=== PATIENT | female | born 1975 | race Caucasian/White ===

== ENCOUNTER 2017-02-17 09:19 | Emergency (ER) | payer BC ==
[~2017-02-17] VITALS: Ht 162.6 cm; Wt 66.7 kg
[2017-02-17 09:20] VITALS: BP_SYST 98
--- NOTE | 2017-02-17 09:20 | NUR ---
BROUGHT BACK TO BED #7 AND TRIAGED, REPORT GIVEN TO TARYN
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
--- NOTE | 2017-02-17 10:30 | NUR ---
DR VÁSQUEZ AT BEDSIDE FOR EVALUATION
[2017-02-17 10:50] LABS: BILIRUBIN,URINE NEGATIVE (NEGATIVE); BLOOD, URINE NEGATIVE (NEGATIVE); CLARITY/URINE HAZY (CLEAR); COLOR,URINE YELLOW (YELLOW); GLUCOSE,URINE NEGATIVE (NEGATIVE); KETONES,URINE NEGATIVE (NEGATIVE); LEUKOCYTE ESTERASE ,URINE NEGATIVE (NEGATIVE); NITRITE, URINE POSITIVE (NEGATIVE); PROTEIN URINE NEGATIVE (NEGATIVE); UROBILINOGEN,URINE 0.2 (0.2-1.0)
--- NOTE | 2017-02-17 11:12 | NUR ---
Patient given written and verbal discharge instructions and verbalizes understanding. ER MD discussed with patient the results and treatment provided. Given copies of tests performed in ER. Patient in stable condition. ID arm band removed. Rx of Macrobid given. Patient educated on pain management and to follow up with PMD. Pain Scale . Opportunity for questions provided and answered.
[2017-02-17 11:25] LABS: BACTERIA,URINE MODERATE /HPF (None Seen); RBC,URINE 0-3 /HPF (0-3); WBC,URINE 0-3 /HPF (0-3)
== END 2017-02-17 11:12 | disposition home or self-care (01) ==
LOC: SED 09:19
DX: O09.812 Supervision of pregnancy resulting from assisted reproductive technology, second trimester (principal); Z3A.17 17 weeks gestation of pregnancy; V49.9XXA Car occupant (driver) (passenger) injured in unspecified traffic accident, initial encounter; Y93.89 Activity, other specified; Y99.8 Other external cause status; Y92.89 Other specified places as the place of occurrence of the external cause
CPT/HCPCS: 81000-TC; 99283

== ENCOUNTER 2017-06-22 14:40 | Observation (INO) | payer BC ==
[2017-06-22] MEDS ORDERED: D5/0.45 NS 1,000 ML IV ONE (15:15)
[2017-06-22 15:42] LABS: BASOPHILS % (AUTO) 0.3 % (0.0-2.0); EOSINOPHILS # (AUTO) 0.2 K/uL (0.0-0.4); HEMATOCRIT 31.9 % (36-48); HEMOGLOBIN 10.7 g/dL (12.0-16.0); LYMPHOCYTES # (AUTO) 1.2 K/uL (1.0-5.5); LYMPHOCYTES % (AUTO) 14.1 % (20.5-51.5); MEAN CORPUSCULAR HEMOGLOBIN 30 pg (27-31); MEAN CORPUSCULAR HGB CONC 33 % (32-36); MEAN CORPUSCULAR VOLUME 90 fL (79.0-98.0); MONOCYTES # (AUTO) 0.3 K/uL (0.0-1.0); MONOCYTES % (AUTO) 3.6 % (1.7-9.3); NEUTROPHILS # (AUTO) 6.6 K/uL (1.8-7.7); PLATELET COUNT (AUTO) 350 K/uL (130-430); RED BLOOD CELL COUNT(AUTO) 3.56 MIL/uL (4.2-6.2); RED CELL DISTRIBUTION WIDTH 13.8 % (9.0-15.0); WHITE BLOOD COUNT (AUTO) 8.3 K/uL (4.8-10.8)
[2017-06-22 15:43] LABS: ALBUMIN 2.3 g/dL (3.4-4.8); CALCIUM 8.8 mg/dL (8.4-11.0); CREATININE 0.61 mg/dL (0.55-1.30); POTASSIUM 3.7 mmol/L (3.5-5.1); TOTAL BILIRUBIN 0.2 mg/dL (0.0-1.0); TOTAL PROTEIN, SERUM 6.6 g/dL (6.4-8.3)
[2017-06-22] MEDS ORDERED: ONDANSETRON HCL 4 MG/2 ML VIAL IVP PRN (16:40)
[2017-06-22 18:37] VITALS: BP_SYST 105
== END 2017-06-22 18:28 | disposition home or self-care (01) ==
LOC: SPU 14:40
PROVIDERS: ADMIT Specialist; ATTEND Specialist
DX: O36.8130 Decreased fetal movements, third trimester, not applicable or unspecified (principal); Z3A.35 35 weeks gestation of pregnancy
CPT/HCPCS: 36415; 80053; 85025; G0378

== ENCOUNTER 2017-06-25 15:35 | Observation (INO) | payer BC ==
[~2017-06-25] VITALS: Ht 160 cm; Wt 77.6 kg
[2017-06-25 18:02] VITALS: BP_SYST 112
== END 2017-06-25 18:35 | disposition home or self-care (01) ==
LOC: SPU 15:35
PROVIDERS: ADMIT Specialist; ATTEND Specialist
DX: O99.613 Diseases of the digestive system complicating pregnancy, third trimester (principal); K51.90 Ulcerative colitis, unspecified, without complications; Z3A.35 35 weeks gestation of pregnancy
CPT/HCPCS: G0378

== ENCOUNTER 2017-06-29 01:13 | Inpatient (IN) | payer BC ==
[~2017-06-29] VITALS: Ht 160 cm; Wt 78.0 kg
[2017-06-29 02:19] LABS: BILIRUBIN,URINE NEGATIVE (NEGATIVE); BLOOD, URINE NEGATIVE (NEGATIVE); CLARITY/URINE SL CLOUDY (CLEAR); COLOR,URINE YELLOW (YELLOW); GLUCOSE,URINE NEGATIVE (NEGATIVE); KETONES,URINE NEGATIVE (NEGATIVE); LEUKOCYTE ESTERASE ,URINE NEGATIVE (NEGATIVE); NITRITE, URINE NEGATIVE (NEGATIVE); PROTEIN URINE NEGATIVE (NEGATIVE); UROBILINOGEN,URINE 0.2 (0.2-1.0)
[2017-06-29 02:24] LABS: BASOPHILS % (AUTO) 0.3 % (0.0-2.0); EOSINOPHILS # (AUTO) 0.1 K/uL (0.0-0.4); EOSINOPHILS % (AUTO) 2.2 % (0.0-4.0); HEMATOCRIT 31.1 % (36-48); HEMOGLOBIN 10.3 g/dL (12.0-16.0); LYMPHOCYTES # (AUTO) 1.3 K/uL (1.0-5.5); LYMPHOCYTES % (AUTO) 20.4 % (20.5-51.5); MEAN CORPUSCULAR HEMOGLOBIN 29 pg (27-31); MEAN CORPUSCULAR HGB CONC 33 % (32-36); MEAN CORPUSCULAR VOLUME 89 fL (79.0-98.0); MONOCYTES # (AUTO) 0.3 K/uL (0.0-1.0); NEUTROPHILS # (AUTO) 4.8 K/uL (1.8-7.7); NEUTROPHILS % (AUTO) 72.1 % (40.0-70.0); PLATELET COUNT (AUTO) 299 K/uL (130-430); RED BLOOD CELL COUNT(AUTO) 3.49 MIL/uL (4.2-6.2); RED CELL DISTRIBUTION WIDTH 13.9 % (9.0-15.0); WHITE BLOOD COUNT (AUTO) 6.5 K/uL (4.8-10.8)
[2017-06-29 02:27] LABS: CALCIUM 8.1 mg/dL (8.4-11.0); CREATININE 0.64 mg/dL (0.55-1.30); POTASSIUM 3.5 mmol/L (3.5-5.1)
[2017-06-29 02:32] LABS: TOTAL BILIRUBIN 0.2 mg/dL (0.0-1.0); TOTAL PROTEIN, SERUM 6.2 g/dL (6.4-8.3)
[2017-06-29 02:35] LABS: BARBITURATE, URINE NEGATIVE (NEG <=200); BENZODIAZEPINE, URINE NEGATIVE (NEG <=150); CANNABINOID, URINE NEGATIVE (NEG <=50); COCAINE, URINE NEGATIVE (NEG <=150); METHAMPHETAMINES SCREEN,URINE POSITIVE (NEG <=500); OPIATE, URINE NEGATIVE (NEG <=100); PHENCYCLIDINE SCREEN,URINE NEGATIVE (NEG <=25); UR TRICYCLIC ANTIDEPRESSANTS NEGATIVE (NEG <=300); URINE AMPHETAMINE NEGATIVE (NEG <=500); URINE METHADONE NEGATIVE (NEG <=200); URINE OXYCODONE SCREEN NEGATIVE (NEG <=100); URINE PROPOXYPHENE SCREEN NEGATIVE (NEG <=300)
[2017-06-29] MEDS ORDERED: CITRIC ACID/SODIUM CITRATE 30 ML UDC PO ONE (14:15)
[2017-06-29 15:01] LABS: BILIRUBIN,URINE NEGATIVE (NEGATIVE); BLOOD, URINE NEGATIVE (NEGATIVE); CLARITY/URINE SL HAZY (CLEAR); COLOR,URINE YELLOW (YELLOW); GLUCOSE,URINE NEGATIVE (NEGATIVE); KETONES,URINE NEGATIVE (NEGATIVE); LEUKOCYTE ESTERASE ,URINE NEGATIVE (NEGATIVE); NITRITE, URINE NEGATIVE (NEGATIVE); PROTEIN URINE NEGATIVE (NEGATIVE); UROBILINOGEN,URINE 0.2 (0.2-1.0)
[2017-06-29 15:53] LABS: BARBITURATE, URINE NEGATIVE (NEG <=200); BENZODIAZEPINE, URINE NEGATIVE (NEG <=150); CANNABINOID, URINE NEGATIVE (NEG <=50); COCAINE, URINE NEGATIVE (NEG <=150); METHAMPHETAMINES SCREEN,URINE NEGATIVE (NEG <=500); OPIATE, URINE NEGATIVE (NEG <=100); PHENCYCLIDINE SCREEN,URINE NEGATIVE (NEG <=25); UR TRICYCLIC ANTIDEPRESSANTS NEGATIVE (NEG <=300); URINE AMPHETAMINE NEGATIVE (NEG <=500); URINE METHADONE NEGATIVE (NEG <=200); URINE OXYCODONE SCREEN NEGATIVE (NEG <=100); URINE PROPOXYPHENE SCREEN NEGATIVE (NEG <=300)
[2017-06-29 16:06] LABS: BACTERIA,URINE FEW /HPF (None Seen); RBC,URINE 0-3 /HPF (0-3); WBC,URINE 0-3 /HPF (0-3)
[2017-06-29] MEDS ORDERED: DIPH-TET-PERTUS Vaccine 0.5 ML VIAL (ADACEL) I.M. ONE (17:30)
[2017-06-30] MEDS ORDERED: CEFAZOLIN 2 GM IVPB PREMIX 50 ML IV ONE (08:15)
[2017-06-30] MEDS ORDERED: CEFAZOLIN 1 GM IVPB PREMIX 50 ML IV ONE (09:00)
[2017-06-30] MEDS ORDERED: ONDANSETRON HCL 4 MG/2 ML VIAL IVP PRN ×2 (09:15→10:45)
[2017-06-30] MEDS ORDERED: OXYCODONE/ACETAMINOPHEN 5-325 TABLET PO PRN ×4 (09:15→10:45)
[2017-06-30] MEDS ORDERED: HYDROcodone/ACETAMIN 5-325 MG TAB (NORCO/ VICODIN) PO PRN ×2 (09:15→10:45)
[2017-06-30] MEDS ORDERED: LR 1,000 ML IV SCH ×2 (10:36→10:43)
[2017-06-30] MEDS ORDERED: OXYTOCIN/NORMAL SALINE 1,000 ML IV ONE (10:36)
[2017-06-30] MEDS ORDERED: NALOXONE HCL 1 MG in NACL 0.9% 1,000 ML IV PRN ×4 (10:43)
[2017-06-30] MEDS ORDERED: HYDROmorphone 2 MG/ML VIAL IVP PRN ×2 (10:45)
[2017-06-30] MEDS ORDERED: HYDROmorphone 1 MG INJ. 1 MG/ML AMPUL IVP PRN (10:45)
[2017-06-30] MEDS ORDERED: DIPHENHYDRAMINE HCL 50 MG CAPSULE PO PRN (10:45)
[2017-06-30] MEDS ORDERED: LANOLIN 7 GM OINT. TP PRN (10:45)
[2017-06-30] MEDS ORDERED: ANUSOL 1 EA SUPP.RECT (PREPARATION H) RC PRN (10:45)
[2017-06-30] MEDS ORDERED: DOCUSATE SODIUM 100 MG CAPSULE PO PRN (10:45)
[2017-06-30] MEDS ORDERED: NALOXONE HCL 0.4 MG/ML AMP (NARCAN) IVP PRN ×3 (10:45)
[2017-06-30] MEDS ORDERED: KETOROLAC TROMETHAMINE 60 MG/2 ML VIAL IM PRN (10:45)
[2017-06-30] MEDS ORDERED: MEASLES,MUMPS&RUBELLA VACC/PF 12500 UNIT/0.5 ML VIAL SUBQ PRN (10:45)
[2017-06-30] MEDS ORDERED: SENNOSIDES/DOCUSATE SODIUM 1 TAB TABLET(SENOKOT-S) PO PRN (10:45)
[2017-06-30] MEDS ORDERED: RHO(D) IMMUNE GLOBULIN/MALTOSE 1500 UNITS/1.3 ML (WINHRO) IM PRN (10:45)
[2017-06-30] MEDS ORDERED: BISACODYL 10 MG/SUPPOSITORY RC PRN (10:45)
[2017-06-30] MEDS ORDERED: MEPERIDINE HCL/PF 25 MG/ML DISP.SYRIN IVP PRN ×2 (10:45)
[2017-06-30] MEDS ORDERED: SIMETHICONE 80 MG TAB.CHEW PO PRN (10:45)
[2017-06-30 11:06] VITALS: BP_SYST 96
[2017-06-30] MEDS: DIPHENHYDRAMINE INJ 50 MG/ML VIAL IVP PRN (11:15)
[2017-06-30] MEDS ORDERED: DIPHENHYDRAMINE INJ 50 MG/ML VIAL ONE ×2 (11:19→12:42)
[2017-06-30] MEDS: CEFAZOLIN 1 GM IVPB PREMIX 50 ML IV SCH (18:12)
[2017-06-30] MEDS: KETOROLAC TROMETHAMINE 30 MG VIAL IVP SCH (18:13)
[2017-06-30] MEDS ORDERED: TEMAZEPAM 15 MG CAPSULE PO PRN (21:00)
[2017-07-01] MEDS: CEFAZOLIN 1 GM IVPB PREMIX 50 ML IV SCH ×2 (00:21→05:57)
[2017-07-01] MEDS: KETOROLAC TROMETHAMINE 30 MG VIAL IVP SCH ×3 (00:21→12:00)
[2017-07-01] MEDS: DIPHENHYDRAMINE INJ 50 MG/ML VIAL IVP PRN (00:43)
[2017-07-01 07:33] LABS: BASOPHILS % (AUTO) 0.2 % (0.0-2.0); EOSINOPHILS # (AUTO) 0.1 K/uL (0.0-0.4); EOSINOPHILS % (AUTO) 1.1 % (0.0-4.0); HEMATOCRIT 27.3 % (36-48); LYMPHOCYTES % (AUTO) 12.4 % (20.5-51.5); MEAN CORPUSCULAR HEMOGLOBIN 30 pg (27-31); MEAN CORPUSCULAR HGB CONC 33 % (32-36); MEAN CORPUSCULAR VOLUME 89 fL (79.0-98.0); MONOCYTES # (AUTO) 0.4 K/uL (0.0-1.0); MONOCYTES % (AUTO) 4.8 % (1.7-9.3); NEUTROPHILS # (AUTO) 6.3 K/uL (1.8-7.7); NEUTROPHILS % (AUTO) 81.5 % (40.0-70.0); PLATELET COUNT (AUTO) 228 K/uL (130-430); RED BLOOD CELL COUNT(AUTO) 3.06 MIL/uL (4.2-6.2); RED CELL DISTRIBUTION WIDTH 13.7 % (9.0-15.0); WHITE BLOOD COUNT (AUTO) 7.8 K/uL (4.8-10.8)
[2017-07-01] MEDS: IBUPROFEN 600 MG TABLET PO SCH ×3 (12:38→23:57)
[2017-07-02] MEDS ORDERED: IBUPROFEN 600 MG TABLET ONE (05:45)
[2017-07-02] MEDS: IBUPROFEN 600 MG TABLET PO SCH (06:05)
== END 2017-07-02 10:15 | disposition home or self-care (01) | DRG 765 ==
LOC: SPU 01:13 → OBSVTOIN 01:13 → UNDODISIN 07-02 09:45
PROVIDERS: ADMIT Specialist; ATTEND Specialist
PROC: 3E0134Z Introduction of Serum, Toxoid and Vaccine into Subcutaneous Tissue, Percutaneous Approach (ICD-10-PCS; 2017-06-30)
PROC: 10D00Z1 Extraction of Products of Conception, Low, Open Approach (ICD-10-PCS; principal; 2017-06-30 09:00)
DX: O26.62 Liver and biliary tract disorders in childbirth (principal); K83.1 Obstruction of bile duct; O34.211 Maternal care for low transverse scar from previous cesarean delivery; O77.0 Labor and delivery complicated by meconium in amniotic fluid; L50.9 Urticaria, unspecified; O99.72 Diseases of the skin and subcutaneous tissue complicating childbirth; Z37.0 Single live birth; Z3A.36 36 weeks gestation of pregnancy; O09.523 Supervision of elderly multigravida, third trimester; Z23 Encounter for immunization
CPT/HCPCS: 36415; 59025; 80053; 80307; 81000-TC; 81003; 82239; 85025; 86592; 86886; 86900; 86901; 88307; 94760; J0690; J1200; J1885; J2590